=== PATIENT | male | born 1995 | race Caucasian/White ===

== ENCOUNTER 2018-05-19 17:18 | Emergency (ER) | payer OTHER ==
[~2018-05-19] VITALS: Ht 172.7 cm; Wt 101.7 kg
[2018-05-19 17:21] VITALS: BP 131/81
[2018-05-19] MEDS ORDERED: AUGMENTIN875 MG PO (18:16)
== END 2018-05-19 18:45 | disposition home or self-care (01) ==
LOC: EME 17:18
DX: S50.371A Other superficial bite of right elbow, initial encounter (principal); W54.0XXA Bitten by dog, initial encounter; Y99.0 Civilian activity done for income or pay
CPT/HCPCS: 99281; 99283